=== PATIENT | male | born 1940 | race Caucasian/White ===

== ENCOUNTER 2018-07-30 08:45 | Outpatient (RCR) | payer MEDICARE, SELFPAY ==
--- NOTE | 2018-07-21 11:31 | IE_ITS ---
Date: July 21, 2018 Referring: Eleazar Staley M.D. [place] Diagnosis: left THR SUBJECTIVE: History of Present Illness: Gavino underwent a left THR, posterior approach, on July 07. Spent one night in the hospital in [place], [place]. Feels he is holding up very well compared to pre op condition with severe arthritis of the left hip. Reports that his pain is well managed. Pain Rating: While seated 0/10 and at its worst 1 to 2/10 (past week). Pain Location: Lateral and posterior aspect of the left hip. Current Level of Function: Limitations with stairs reciprocally, up and down. Unable to ambulate without an assisted device. Difficulty donning and doffing socks and shoes. Limitations with left side lying secondary to pain. Still not driving yet. Social: Lives in a multi level home with his . They winter in [place]. Has 4 steps to get into his home with a railing and a full flight of stairs once inside the house. He is performing these with a step to fashion using the railing up and down. 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 Falls in the last year: __x__ No ____Yes - How many? ____ - (if over 2, balance SM needs to be completed) Reported hospitalizations in the last year - ____ No __x__ Yes - Dates of admission/reason: post THR Medications: See patient EMR. Quality of Life: __x__ Good Standardized Measures: LEFS score: __56%__ OBJECTIVE: Posture: Ectomorphic body build. Tends to stand with a forwardly flexed posture. This is corrected with verbal and tactile cues. Observation: (behavior, atrophy, skin color, etc.) Incision is well closed without drainage or erythema. Does have hypo mobility of the scar tissue. We discussed use of Vitamin E for scar tissue mobilization at home. Atrophy noted throughout the left calf, which patient states has been a long standing issue, likely from stenosis. Gait: Antalgic with glute medius gait without the use of an assisted device. He has limitations in extension of the left hip past mid stance on the left and during swing on the right. Complains of tightness in the front of the hip with this gait style. Palpation: Mildly tender with palpation of the glute medius and glute chela on the left; (-) on the right. ROM: Hip ROM right into flexion 115 ; left 80 and AA to 90 . Abduction 30 right; 20 left and AA to 25 . External rotation 20 right and AA 25 compared to 10 left and AA 20 . Internal rotation was not assessed. Knee flexion and extension are grossly full in both directions. This is painfree. Strength: The patient is able to perform a SLR with a 0 lag. Hip flexor strength 4+/5 right; 4-/5 left. Hip abduction 4+/5 right; 3/5 left. Hip extension 4+/5 right; 4-/5 left. Quadriceps and hamstrings 4/5 bilaterally. Neuro: Patient reports mildly decreased sensation around the incision, otherwise WNL. Treatment: IE: [id number] x1 Patient Education: Initial evaluation followed by instruction in a HEP incorporating short swing hams in standing, bridging, SLR, self mobs into hip extension while standing by his walker, hip abd/adduction in supine with knee flexed, right knee to chest for anterior hip stretching on the left and side lying clamshells. The patient declined the need for ice post treatment. Direct treatment time: 60 min. from 10:00 til 11:00 A.M. ASSESSMENT: Patient is a 78-year-old male, referred for PT services with the diagnosis of left THR. Patient presents with clinical signs and symptoms consistent with this diagnosis, as demonstrated by the following impairment level findings: impaired gait, joint mobility, motor function, muscle performance and ROM associated with a total joint arthroplasty Impairments are contributing to the following functional limitations: as listed above Patient is assessed as: __x__ Low 82488 complexity, based on the following: History: (list): See comorbidities and social history. Examination: (list): See above for functional limitations and impairments. Presentation: Stable and uncomplicated Decision-Making: Low complexity ____ Patient requires skilled PT intervention to remediate the above functional limitations to return to: __x__ Return to full functional mobility Prognosis: __x__ Good G-Codes (fill in modifier after appropriate code): Patient's primary functional limitation is in the category of: __x__ Mobility - walking and moving around : [id number] Projected goal: __x__ Mobility - walking and moving around: [id number] based on LEFS, trying to achieve less than 25% STG: __6__ weeks. 1) patient ambulating without gait deviations and no assisted device 2) increase hip strength by 1/2 grade or more (left) 3) improve active hip flexion to greater than or equal to 110 , abduction 35 and ext rot 35 4) able to tolerate side lying for sleep LTG: __12__ weeks. 1) return to premorbid level of function. 2) return to full, pain-free, functional mobility. 3) decrease LEFS to less than 25% 4) patient negotiating stairs reciprocally 5) left hip strength greater than or equal to 4+/5 throughout PLAN: Patient to be seen 2x per week, for 12 weeks, adjusting frequency of visits per patient symptoms and response to treatment. Treatment to include: Manual therapy - 06969 - A/AA/PROM of the left hip all planes avoiding aggressive end range motion of int rotation or adduction. He verbally states there are no precautions, but given the fact that he had a posterior approach we will be mindful of this and not aggressively push into int rotation, adduction and flexion combined. Soft tissue stretching, particularly anterior hip flexors and quadriceps. Therapeutic exercise - 28308 - hip stabilization and LE strengthening of the quadriceps, hamstrings and calves. Will ice for pain control as needed. Will also receive gait training (35640) progressing from his walker to a cane to no assisted device at all. The patient is in agreement with my POC, and is to be discharged when the above goals have been met. Thank you for this referral. Please do not hesitate to contact me with any questions or concerns regarding this patient's plan of care. Please sign, date and return to our clinic with your approval........................... Iggy Staley M.D.
--- NOTE | 2018-07-23 13:45 | PTTR_ITS ---
DATE: 07/23/18 SUBJECTIVE: Stated left knee has been more uncomfortable than left hip. Rates knee pain as 3 out of 10 on 0-10 pain scale. Hip is really not painful. Has not taken any pain meds today, has not felt like he needed them. OBJECTIVE: Manual therapy: (50715y1). Mobilization of left hip with AAROM into flexion to 90 degrees, abduction to approximately 25 degrees and external rotation. Mobilization of left knee into flexion and extension was also performed due to ongoing knee discomfort. Therapeutic procedures ([id number]). * x HEP review performed * x See flow sheet: Had patient perform standing left hip flexion, abduction, extension and SSH. Also, had patient perform mini squats and LAQs. Discussed activation of pelvic floor / TA musculature with each of these activities. * x Provided skilled instruction in proper exercise performance * x Provided skilled manual cues to facilitate proper muscle recruitment and/ or movement pattern * Declined cryotherapy to hip at conclusion of session. Advised to use at home for sensitivity in knee and hip region as needed. Direct treatment time: 30 minutes Total treatment time: 30 minutes
--- NOTE | 2018-07-26 11:54 | PTTR_ITS ---
DATE: 07/26/18 SUBJECTIVE: Cheng states that he is doing well. He does admit that last he was here he all of a sudden ended up with some sort of reaction. He c/o redness and itching of bilateral palms as well as swelling of hands and digits. He reports that he is much better today. He questions if hepicked up some sort of germ from treatment table the last time he was here. OBJECTIVE: Manual therapy: ([id number]). mobilizations and ROM of left hip. Stretching of hamstrings, piriformis and quads. LE distractions via leg pulls. I also stretched hip adductors. STM t/o TFL, hip flex and proximal ITB. Therapeutic procedures ([id number]). * x See flow sheet: for global LE strength and stabilization. * x Provided skilled instruction in proper exercise performance: proper glut engagement. He declined the need for cryo post session. Direct treatment time: 45 min Total treatment time: 45 min
--- NOTE | 2018-07-30 10:22 | PTTR_ITS ---
DATE: 07/30/18 SUBJECTIVE: Gavino reports that he did well after his last session. He c/o occasional pins and needle sensation in upper thigh area. OBJECTIVE: Manual therapy: ([id number]). mobilizations and ROM of left hip. STM t/o hip and buttock region and into ITB, TFL. Stretching of hamstrings, piriformis, adductors. LE distractions via leg pulls. Therapeutic procedures ([id number]). * x See flow sheet: for global LE strength and hip stabilizations. * x Provided skilled instruction in proper exercise performance: proper glut engagement and postural corrections. He declined the need for cryo post session. Direct treatment time: 45 min Total treatment time: 50 min no charge for cardio
== END 2018-07-30 23:59 | disposition home or self-care (01) ==
LOC: PT 08:45
PROVIDERS: PCP Emergency Medicine; Referring Provider Orthopaedic Surgery Adult Reconstructive Orthopaedic Surgery; Visit Provider Orthopaedic Surgery Adult Reconstructive Orthopaedic Surgery
DX: Z47.1 Aftercare following joint replacement surgery (principal); Z96.642 Presence of left artificial hip joint
CPT/HCPCS: 97110; 97140; 97161; G8978

== ENCOUNTER 2018-08-31 10:55 | Outpatient (CLI) | payer MEDICARE, SELFPAY ==
[2018-08-31 13:27] LABS: TSH 2.17 uIU/mL (0.358-3.74)
== END 2018-08-31 11:15 ==
PROVIDERS: PCP Emergency Medicine; Visit Provider Emergency Medicine
DX: E03.9 Hypothyroidism, unspecified (principal)
CPT/HCPCS: 36415; 84443

== ENCOUNTER 2019-04-07 15:58 | Emergency (ER) | payer MEDICARE, SELFPAY ==
[2019-04-07 16:02] VITALS: BP 113/61; PULSE 68; RESP 16; TEMP 36; O2SAT 95
--- NOTE | 2019-04-07 16:23 | DI.CT_ITS ---
SYMPTOM/DIAGNOSIS: FALL, HIT HEAD , ANTERIOR CONTUSION CERVICAL SPINE CT: 04/07 CT examination of the cervical spine was performed utilizing multi-slice acquisition and multi-planar reconstruction. Tracheolaryngeal structures appear intact. No cervical mass or adenopathy is seen. Lung apices are clear as visualized. There are degenerative changes of the cervical spine, not unusual in this age group. No evidence of acute fracture or dislocation. CONCLUSION: No evidence of acute cervical fracture. Marked degenerative changes are present with multi-level disc space narrowing and facet arthropathy. CRANIAL CT: 04/[address] was performed. There is moderate generalized cerebral atrophy. There is no evidence of acute intracranial hemorrhage, mass effect or midline shift. No calvarial fracture identified. The temporal bone structures and visualized orbital structures appear intact. The visualized paranasal sinuses and mastoid air cells are clear. CONCLUSION: No evidence of acute intracranial injury.
--- NOTE | 2019-04-07 16:23 | DI.RAD_ITS ---
SYMPTOM/DIAGNOSIS: WAS DISLOCATED (NOW RELOCATED) R/O FX LEFT LITTLE FINGER: 04/07 Three views were obtained. No fracture is seen.
--- NOTE | 2019-04-07 17:29 | DI.VRAD_ITS ---
EXAM: XR Left Finger(s), 2 or More Views EXAM DATE/TIME: 04/07/2019 4:25 PM CLINICAL HISTORY: 78 years old, male; Injury or trauma; Fall; Initial encounter; Dislocation; Severity not specified; Left; Little finger TECHNIQUE: Imaging protocol: XR Left fingers. Views: Minimum 2 views. COMPARISON: No relevant prior studies available. FINDINGS: Bones/joints: Questionable nondisplaced fracture in the distal aspect of the proximal phalanx of the fifth digit. No displacement. It is unclear if this extends to the articular surface or not. Soft tissues: Soft tissue edema. IMPRESSION: Acute fracture suspected. Dictated and Authenticated by: Britton Dye MD. Ordering:SUHAIL Sainz MD
--- NOTE | 2019-04-07 18:09 | DI.VRAD_ITS ---
EXAM: CT Head Without Contrast EXAM DATE/TIME: 04/07/2019 4:25 PM CLINICAL HISTORY: 78 years old, male; Injury or trauma; Fall; Initial encounter; Blunt trauma TECHNIQUE: Imaging protocol: Axial computed tomography images of the head/brain without contrast. Coronal and sagittal reformatted images were created and reviewed. COMPARISON: No relevant prior studies available. FINDINGS: Brain: Normal. No hemorrhage. No significant white matter disease. No edema. Ventricles: Normal. No ventriculomegaly. Bones/joints: Unremarkable. No acute fracture. Sinuses: Visualized sinuses are unremarkable. No acute sinusitis. Mastoid air cells: Visualized mastoid air cells are unremarkable. No mastoid effusion. Soft tissues: Unremarkable. IMPRESSION: No acute intracranial abnormality. EXAM: CT Cervical Spine Without Contrast EXAM DATE/TIME: 04/07/2019 4:25 PM CLINICAL HISTORY: 78 years old, male; Injury or trauma; Fall; Initial encounter; Blunt trauma TECHNIQUE: Imaging protocol: Axial computed tomography images of the cervical spine without contrast. Coronal and sagittal reformatted images were created and reviewed. COMPARISON: No relevant prior studies available. FINDINGS: Vertebrae: Straightening of the cervical lordosis. Discs/Spinal canal/Neural foramina: Degenerative disc disease characterized by disc space narrowing. Disc space C4-5 level. Disc osteophyte complexes at C2-3, C3-4, C5-6 and C6-7 causing bilateral neural foraminal stenosis at these levels. Soft tissues: Unremarkable. Lungs: Lung apices are normal. IMPRESSION: Degenerative changes. No acute finding. Dictated and Authenticated by: Britton Dye MD. Ordering:SUHAIL Sainz MD
--- NOTE | 2019-04-07 18:40 | W.ED.GENAD ---
Discharge Plan Disposition Patient Disposition: HOME Condition: Good Discharge Details Chief Complaint: Orthopedic Clinical Impression: Dislocated finger, Open finger fracture, Fall Primary Care Provider: Ervin Gillis ED Provider: Alistair Correa Home Meds and New Rx's Prescriptions: New cephalexin [Keflex] 500 mg capsule 500 mg PO QID 7 Days Qty: 28 RF: 0 No Action levothyroxine [Synthroid] 50 mcg tablet 50 mcg PO DAILY Qty: 90 RF: 3 CENTRUM SILVER TABLET 1 EACH tablet 1 tab PO DAILY RF: 0 tamsulosin [Flomax] 0.4 MG capsule 0.4 mg PO DAILY RF: 0 calcium carbonate-vitamin D3 [Calcium 500 + D] 1 EACH tablet 1 ea PO DAILY RF: 0 Prilosec OTC 20 MG tablet,delayed release (DR/EC) 20 mg PO BID PRNQty: 180 RF: 4 ibuprofen 200 MG capsule 200 mg PO daily prn RF: 0 hydrochlorothiazide 25 MG tablet 25 mg PO DAILY Qty: 90 RF: 4 Discharge Instructions Instructions: Finger Fracture (ED) Additional Instructions: CT scan of your head is negative for any bleed or fracture. The x-ray of your finger shows a small fracture. Please take the Keflex as directed 4 times daily. Please keep the splint on for the next 7 days as the cut and fracture heal. Please take Tylenol and Motrin as needed for pain. Please return here in the next 7 to 10 days for removal of the sutures. Please leave the dressing on for 24 hours, then you may remove and begin cleaning the wound at least twice a day with soap and water. Do not directly soak the area. Watch for any signs of infection and return if any increasing redness, swelling, pain, drainage. Referrals: Ervin Gillis DO [Primary Care Provider] - Discharge Data Discharge Date/Time-TO BE ENTERED AT DEPARTURE: 04/07/19 19:04 Medical Decision Making This is a pleasant 78-year-old male who presents after a mechanical slip and subsequent fall onto a grassy surface striking the front of his head dislocating his left fifth digit. Aside for the contusion on his forehead, the dislocation of his left fifth finger, and a small laceration at the point of maximal skin tension, there is no other signs of significant trauma. He demonstrates a normal neurologic exam without deficit. He is on no blood thinners, tetanus is up-to-date. CT scan of the head and neck is negative for any acute intracranial process per virtual radiology. X-ray of the finger post reduction demonstrates questionable small fracture. Subsequent read by in-house radiology feels that there is no actual fracture of the bone. A digital block with 2% lidocaine was administered, prior to this the patient did demonstrate good two-point discrimination on the finger. After complete anesthesia was achieved the patient's finger was reduced without complication. No bony fragments or sharp parts were noted before or after the reduction. A small 1 cm laceration was present across the point of maximal skin tension, and I feel that this was secondary to the skin tension rather than actual disruption of the skin from a sharp bony fragment. Especially in conjunction with a relatively benign appearing finger x-ray. Out of an abundance of precaution the area was irrigated scrubbed vigorously with chlorhexidine, and then subsequently sutured with 2 interrupted 5-0 ethilon sutures. Patient tolerated this well. I did briefly review the case with Dr. Walsh, and he agrees that the mechanism does not support open fracture from sharp bony fragments, and is likely secondary to the significant tension. Out of an abundance of precaution the patient will be started on Keflex. The finger was splinted. With an otherwise benign work-up, normal neurologic exam, and normal movement of his finger with normal flexion and extension, and no evidence of weakness or significant tendon damage or neurologic or vascular compromise, including the evidence of notably brisk capillary refill in his distal tip of his finger, I feel he can be safely discharged home with close follow-up. We discussed red flags which to return and the patient understands. I have extensively reviewed the treatment plan and discharge instructions with the patient and their family. I have addressed all patient concerns at this time. The patient and family was made aware of what symptoms to monitor for that would warrant a return to the emergency department. Discussed the plan with the patient and family, they demonstrate verbal understanding and agreement with our assessment and plan at this time. Patient Name: FREDY QUIROGA #: [id number]: ER Ordering Provider: : PRE ER Primary Care Provider: Ervin Gillisate of Exam: 04/07/19Sex: M : 8Age: 78 CLINICAL HISTORY: 78 years old, male; Injury or trauma; Fall; Initial encounter; Dislocation; Severity not specified; Left; Little finger Technique: Imaging protocol: XR Left fingers. Views: Minimum 2 views. Comparison: No relevant prior studies available. Findings: Bones/joints: Questionable nondisplaced fracture in the distal aspect of the proximal phalanx of the fifth digit. No displacement. It is unclear if this extends to the articular surface or not. Soft tissues: Soft tissue edema. Impression: Acute fracture suspected. Dictated and Authenticated by: Britton Dye MD. Ordering:SUHAIL Sainz MD Exam(s) EXAM: CT Head Without Contrast EXAM DATE/TIME: 04/07/2019 4:25 PM CLINICAL HISTORY: 78 years old, male; Injury or trauma; Fall; Initial encounter; Blunt trauma TECHNIQUE: Imaging protocol: Axial computed tomography images of the head/brain without contrast. Coronal and sagittal reformatted images were created and reviewed. COMPARISON: No relevant prior studies available. FINDINGS: Brain: Normal. No hemorrhage. No significant white matter disease. No edema. Ventricles: Normal. No ventriculomegaly. Bones/joints: Unremarkable. No acute fracture. Sinuses: Visualized sinuses are unremarkable. No acute sinusitis. Mastoid air cells: Visualized mastoid air cells are unremarkable. No mastoid effusion. Soft tissues: Unremarkable. IMPRESSION: No acute intracranial abnormality. EXAM: CT Cervical Spine Without Contrast EXAM DATE/TIME: 04/07/2019 4:25 PM CLINICAL HISTORY: 78 years old, male; Injury or trauma; Fall; Initial encounter; Blunt trauma TECHNIQUE: Imaging protocol: Axial computed tomography images of the cervical spine without contrast. Coronal and sagittal reformatted images were created and reviewed. COMPARISON: No relevant prior studies available. FINDINGS: Vertebrae: Straightening of the cervical lordosis. Discs/Spinal canal/Neural foramina: Degenerative disc disease characterized by disc space narrowing. Disc space C4-5 level. Disc osteophyte complexes at C2-3, C3-4, C5-6 and C6-7 causing bilateral neural foraminal stenosis at these levels. Soft tissues: Unremarkable. Lungs: Lung apices are normal. IMPRESSION: Degenerative changes. No acute finding. Dictated and Authenticated by: Britton Dye MD. Ordering:SUHAIL Sainz MD HPI General Date/Time Provider Initiated Documentation: 04/07/19 16:10. HPI Narrative: This is an 78 year old male who is right hand dominant who presents today for evaluation of fall, head contusion, and left 5th digit deformity. The patient states that he was mowing his lawn and doing yard work when he had a mechanical slip on a grassy hill, and came running down the hill, catching himself with his left hand and striking his forehead. He had no loss of consciousness, he recalls the entire event. He was able to get up and ambulate on his own without assistance. He denies any severe headache, neck pain, chest pain, or abdominal pain. He denies any leg or arm pain. He does note a significant deformity in his left finger, but denies any other complaints aside for the mild pain there. He is not on any blood thinners. Tetanus is up-to-date. No other complaints or modifying factors. Related Data Home Medications Medication Instructions Recorded Confirmed Centrum Silver Tablet 1 tab PO DAILY 04/18/13 04/07/19 tamsulosin [Flomax] 0.4 mg PO DAILY tab-cap 01/01/16 04/07/19 calcium carbonate-vitamin D3 1 ea PO DAILY 04/16/16 04/07/19 [Calcium 500 + D Tablet] omeprazole magnesium [Prilosec Otc] 20 mg PO BID PRN #180 tab 11/03/16 04/07/19 ibuprofen 200 mg PO daily prn 08/26/17 04/07/19 hydrochlorothiazide 25 mg PO DAILY #90 tab 02/23/18 04/07/19 levothyroxine 50 mcg tablet 50 mcg PO DAILY #90 tab-cap 08/31/18 04/07/19 cephalexin [Keflex] 500 mg PO QID 7 Days #28 cap 04/07/19 Previous Rx's Medication Instructions Recorded hydrochlorothiazide 25 mg PO DAILY #90 tab 02/23/18 levothyroxine 50 mcg tablet 50 mcg PO DAILY #90 tab-cap 08/31/18 cephalexin [Keflex] 500 mg PO QID 7 Days #28 cap 04/07/19 Allergies Allergy/AdvReac Type Severity Reaction Status Date / Time amlodipine AdvReac Intermediate periphreal Verified 04/07/19 16:10 edema General Stated Complaint: Orthopedic PRAVEENA: 3 Review of Systems Review of Systems All systems reviewed & are unremarkable except as noted in HPI and below PFSH Surgical History Colonoscopy - IV Sedation (06/22/13) LAMINECTOMY (MULTILEVEL) (~2012) Replacement of total knee joint (~2003) Family History Mother No problems noted. Father Acute ill-defined cerebrovascular disease Grandfather No problems noted. Grandfather Personal history of malignant neoplasm Grandmother Acute ill-defined cerebrovascular disease Grandmother No problems noted. Social History Smoking/Tobacco Use Status: Former Tobacco Use Alcohol Intake: former Drug use: Never Do you feel safe at home: Yes Do you feel safe in your relationship?: Yes Exam Narrative Exam Narrative: 1.Const: Well-nourished, Well-developed, appearing stated age 2.Eyes: PERRL, no conjunctival injection, and symmetrical lids. 3.ENT: Atraumatic external nose and ears. Moist MM. Neck: Symmetric, trachea midline, No thyromegaly. There is no evidence of raccoon eyes, dewey sign, CSF rhinorrhea, mastoid tenderness, cranial crepitus, hemotympanum, exophthalmos, or hyphema. Patient demonstrates intact dentition with no signs of tooth avulsion or fracture, no signs of jaw deformity, no evidence of a LeFort's fracture, with an intact palate, nose and orbital region. There is no evidence of a nasal septal hematoma. No proptosis. Jaw closes symmetrically. Airway is clear. 4.CVS: +S1/S2, No murmurs or gallops. Peripheral pulses 2+ and equal in all extremities. Brisk capillary refill in all extremities. 5.RESP: Unlabored respiratory effort. Clear to auscultation bilaterally. No wheezes rales or rhonchi 6.GI: Soft, Nontender/Nondistended, No hepatosplenomegaly. No guarding or rebound. 7.MSK: No gross deformities or discolorations or lesions except for in the fifth digit on the left hand, otherwise he tolerates full range of motion of extremities without tenderness. All compartments of upper and lower extremities are soft with no tenderness. Vascular exam demonstrates brisk capillary refill and intact pulses in all extremities. Pelvic exam demonstrates a stable pelvis, nontender to lateral compression and palpation of symphysis pubis. No midline tenderness to palpation over the CTLS spine. Normal ROM in flexion, extension, side bend, and rotation. Patient has +5 out of 5 strength in the lower extremities in dorsiflexion and plantarflexion, knee flexion and extension, hip flexion and extension. There is +2 over 2 dorsalis pedis pulses bilaterally. There is normal sensation to the skin with light touch at the foot, knee, and hip. Normal saddle sensation. Good sensation over the deep sural nerve area bilaterally. Rectal exam deferred. Reflexes are +2 over 4 in the patellar reflex bilaterally. +5 out of 5 strength in the medial, ulnar, radial nerve distribution bilaterally in the hands as well as intact light touch sensation to these dermatomes on the hands Left 5th finger: Left finger demonstrates dislocation at the proximal interphalangeal joint. The distal component of the phalanx is dislocated anteriorly with notable extension at 90 degrees at the joint because of it and subsequent flexion of the distal phalanx tip. There is a small skin tear on the anterior aspect of the proximal interphalangeal joint, no evidence of bony protrusion. No active bleeding. 8.Skin: Warm, Dry. No rashes or lesions. Small 1 cm laceration at the anterior aspect of the proximal interphalangeal joint. No bony protrusion. Small contusion noted over the forehead. 9.Neuro: manager consumer II-XII grossly intact. Sensation grossly intact, no focal neurologic deficits. 10.Psych: (AAO) x3. Appropriate mood and affect Course Vital Signs Temperature 36 C L 04/07/19 16:02 Pulse 68 04/07/19 16:02 Respiratory Rate 16 04/07/19 16:02 Blood Pressure 113/61 04/07/19 16:02 Pulse Oximetry 95 04/07/19 16:02 Temperature 36 C L 04/07/19 16:02 Temperature Source Skin 04/07/19 16:02 Pulse 68 04/07/19 16:02 Respiratory Rate 16 04/07/19 16:02 Respiratory Effort 04/07/19 16:07 Blood Pressure 113/61 04/07/19 16:02 Blood Pressure Position Sitting 04/07/19 16:02 Pulse Oximetry 95 04/07/19 16:02 Oxygen Delivery Method Room Air 04/07/19 16:02 Oxygen Flow Rate 0 04/07/19 16:02 Pain Level 3 04/07/19 18:27
[2019-04-07] MEDS: Cephalexin 500 MG CAP PO (18:57)
[2019-04-07 18:59] VITALS: BP 113/61; PULSE 68; RESP 16; TEMP 36.7; O2SAT 95
== END 2019-04-07 19:04 | disposition home or self-care (01) ==
PROVIDERS: Emergency Provider Student in an Organized Health Care Education/Training Program; PCP Emergency Medicine
DX: S63.217A Subluxation of metacarpophalangeal joint of left little finger, initial encounter (principal); S00.83XA Contusion of other part of head, initial encounter; S61.217A Laceration without foreign body of left little finger without damage to nail, initial encounter; W01.0XXA Fall on same level from slipping, tripping and stumbling without subsequent striking against object, initial encounter
CPT/HCPCS: 12001; 26770; 99284; 70450; 72125; 73140

== ENCOUNTER 2019-04-14 14:11 | Emergency (ER) | payer MEDICARE, SELFPAY ==
[2019-04-14 14:17] VITALS: BP 134/72; PULSE 62; RESP 16; TEMP 36.7; O2SAT 64
--- NOTE | 2019-04-14 14:25 | W.ED.GENAD ---
Discharge Plan Disposition Patient Disposition: HOME Condition: Good Discharge Details Chief Complaint: SutureRem Clinical Impression: Open fracture dislocation of finger Primary Care Provider: Ervin Gillis ED Provider: Prisca Montilla Home Meds and New Rx's Prescriptions: Continued levothyroxine [Synthroid] 50 mcg tablet 50 mcg PO DAILY Qty: 90 RF: 3 CENTRUM SILVER TABLET 1 EACH tablet 1 tab PO DAILY RF: 0 tamsulosin [Flomax] 0.4 MG capsule 0.4 mg PO DAILY RF: 0 calcium carbonate-vitamin D3 [Calcium 500 + D] 1 EACH tablet 1 ea PO DAILY RF: 0 Prilosec OTC 20 MG tablet,delayed release (DR/EC) 20 mg PO BID PRNQty: 180 RF: 4 ibuprofen 200 MG capsule 200 mg PO daily prn RF: 0 hydrochlorothiazide 25 MG tablet 25 mg PO DAILY Qty: 90 RF: 4 Discharge Instructions Additional Instructions: Wound appears to be healing well today. Sutures are removed. YOu will need follow-up with orthopedics to evaluate your finger and ensure the fracture is healing well. Please call orthopedics to schedule appointment. Please continue splint until evaluated by orthopedics. Encourage rest, ice, elevation. Tylenol and ibuprofen as needed for discomfort. Continue to monitor the wound for signs of infection include redness, warmth, drainage, increased pain, fever/chills. If these arise please seek care urgently once again. Referrals: Ervin Gillis, [Primary Care Provider] - Obinna Ward MD [ [facility] STAFF PHYSICIAN] - Medical Decision Making Patient 78-year-old male presents today for suture removal. He was seen here 7 days ago at which time he was diagnosed with an open fracture dislocation of the left pinky finger. Patient appears to be healing well. No signs of infection. #[address] These were removed by nursing staff. He reports that he is intermittently been wearing his splint. Advised he should wear this consistently. Patient has not had any follow-up as of yet. I advised that he will need follow-up with orthopedics. Placed the patient on the fracture list. Encourage rest, ice, elevation. Tylenol and ibuprofen as needed for discomfort. All of his questions and concerns were addressed and he is in agreement with this plan. HPI General Mode of arrival: ambulatory. Date/Time Provider Initiated Documentation: 04/14/19 14:20. Limitations to Documentation: no limitations. Information obtained by: patient, family and RN notes reviewed. History of Present Illness 78 year old M presents to the emergency department with the chief complaint of suture removal, described as mild, and is localized to the left and upper extremity. Patient started experiencing this day(s) and it has been now resolved. Movement worsens symptoms . Patient notes no other symptoms.. Patient did receive the following treatments prior to arrival, none Related Data Home Medications Medication Instructions Recorded Confirmed Centrum Silver Tablet 1 tab PO DAILY 04/18/13 04/14/19 tamsulosin [Flomax] 0.4 mg PO DAILY tab-cap 01/01/16 04/14/19 calcium carbonate-vitamin D3 1 ea PO DAILY 04/16/16 04/14/19 [Calcium 500 + D] Prilosec OTC 20 mg PO BID PRN #180 tab 11/03/16 04/14/19 ibuprofen 200 mg PO daily prn 08/26/17 04/14/19 hydrochlorothiazide 25 mg PO DAILY #90 tab 02/23/18 04/14/19 levothyroxine 50 mcg tablet 50 mcg PO DAILY #90 tab-cap 08/31/18 04/14/19 Previous Rx's Medication Instructions Recorded hydrochlorothiazide 25 mg PO DAILY #90 tab 02/23/18 levothyroxine 50 mcg tablet 50 mcg PO DAILY #90 tab-cap 08/31/18 Allergies Allergy/AdvReac Type Severity Reaction Status Date / Time amlodipine AdvReac Intermediate periphreal Verified 04/14/19 14:25 edema General Stated Complaint: SutureRem PRAVEENA: 5 Review of Systems Constitutional Reports as per HPI, Denies chills and Denies fever(s) Musculoskeletal Reports as per HPI Integumentary/Breasts Reports as per HPI Neurologic Reports as per HPI, Denies sensory deficit and Denies paresthesias PFS Surgical History Colonoscopy - IV Sedation (06/22/13) LAMINECTOMY (MULTILEVEL) (~2012) Replacement of total knee joint (~2003) Family History Mother No problems noted. Father Acute ill-defined cerebrovascular disease Grandfather No problems noted. Grandfather Personal history of malignant neoplasm Grandmother Acute ill-defined cerebrovascular disease Grandmother No problems noted. Social History Smoking/Tobacco Use Status: Former Tobacco Use Alcohol Intake: former Drug use: Never Do you feel safe at home: Yes Do you feel safe in your relationship?: Yes Exam Const General: cooperative, healthy appearing, comfortable, no acute distress and well developed Nutritional Appearance: average body habitus and well nourished Orientation: alert and awake Resp Effort & Inspection: normal respiratory effort, able to speak in complete sentences and no respiratory distress Cardio Rate: regular rate Rhythm: regular rhythm Skin General skin exam: no erythema Trauma: laceration (appears to be healing well) Neuro General: alert and awake Cognition: normal cognition Speech: speech normal Gait: normal gait Sensory Exam: no sensory deficits noted Extrem Left lower extremity: abnormal to inspection (laceration appears to be healing well, no deformity) Psych Appearance: grossly normal and well kempt Mental Status: mental status grossly normal Speech and Movement: speech and movement normal Course Vital Signs Temperature 36.7 C 04/14/19 14:17 Pulse 62 04/14/19 14:17 Respiratory Rate 16 04/14/19 14:17 Blood Pressure 134/72 04/14/19 14:17 Pulse Oximetry 64 L 04/14/19 14:17 Temperature 36.7 C 04/14/19 14:17 Temperature Source Skin 04/14/19 14:17 Pulse 62 04/14/19 14:17 Respiratory Rate 16 04/14/19 14:17 Respiratory Effort Non-Labored 04/14/19 14:23 Blood Pressure 134/72 04/14/19 14:17 Pulse Oximetry 64 L 04/14/19 14:17 Oxygen Delivery Method Room Air 04/14/19 14:17 Oxygen Flow Rate 0 04/14/19 14:17 Pain Level 0 04/14/19 14:17
== END 2019-04-14 14:41 | disposition home or self-care (01) ==
LOC: ER 14:41
PROVIDERS: Emergency Provider Physician Assistant; PCP Emergency Medicine
DX: S61.217D Laceration without foreign body of left little finger without damage to nail, subsequent encounter (principal); X58.XXXD Exposure to other specified factors, subsequent encounter; Z48.02 Encounter for removal of sutures

== ENCOUNTER → 2019-04-26 08:30 | Outpatient (BNVA) | payer MEDICARE, SELFPAY | PROVIDERS: PCP Emergency Medicine; Referring Provider Emergency Medicine; Visit Provider Orthopaedic Surgery | DX: S63.20 Unspecified subluxation of other finger (principal); W01.0XXA Fall on same level from slipping, tripping and stumbling without subsequent striking against object, initial encounter; I10 Essential (primary) hypertension | CPT/HCPCS: 99201; 99213 ==

== ENCOUNTER 2019-09-02 11:02 | Outpatient (CLI) | payer MEDICARE, SELFPAY ==
[2019-09-02 13:18] LABS: Abs Immature Grans 0.01 k/cumm (0.0-0.09); Absolute Basophil Count 0.03 k/cumm (0.0-0.2); Absolute Eosinophil Count 0.15 k/cumm (0.0-0.7); Absolute Lymphocyte Count 1.44 k/cumm (1.2-3.4); Absolute Monocyte Count 0.71 k/cumm (0.11-0.7); Absolute Neutrophil Count 4.87 k/cumm (1.2-6.7); Basophils % 0.4; Eosinophils % 2.1; HCT 44.1 % (40.0-50.0); HGB 15.6 g/dL (13.5-17.5); Immature Grans % 0.1; Mean Corp. HGB Concentration 35.4 g/dL (32.0-36.0); Mean Corpuscular Hemoglobin 32.6 pg (27.0-33.0); Mean Corpuscular Volume 92.3 fL (80-95); Mean Platelet Volume 10.5 fL (8.0-11.0); Monocytes % 9.8; Neutrophils % 67.6; Platelet Count 284 x1000/uL (130-400); RBC 4.78 m/cumm (4.50-6.00); White Blood Cell Count 7.21 k/cumm (4.4-10.8)
[2019-09-02 13:35] LABS: ALT 28 U/L (16-63); AST 33 U/L (15-37); Albumin 3.9 g/dL (3.4-5.0); Alkaline Phosphatase 89 U/L (46-116); BUN 15 mg/dL (7-18); Bilirubin, Total 0.7 mg/dL (0.2-1.0); C-Reactive Protein 0.16 mg/dL (0.0-0.3); CREATININE 1.15 mg/dL (0.70-1.30); Calcium 9.5 mg/dL (8.5-10.1); Chloride 98 mmol/L (98-107); Glucose 84 mg/dL (70-100); Potassium 4.8 mmol/L (3.5-5.1); Sodium 137 mmol/L (136-145); TSH 1.57 uIU/mL (0.36-3.74); Total Protein 6.9 g/dL (6.4-8.2)
== END 2019-09-02 11:22 ==
PROVIDERS: PCP Emergency Medicine; Visit Provider Emergency Medicine
DX: C67.9 Malignant neoplasm of bladder, unspecified (principal); R53.83 Other fatigue; E03.9 Hypothyroidism, unspecified
CPT/HCPCS: 36415; 80053; 84443; 85025; 86140

== ENCOUNTER 2019-09-13 12:29 | Emergency (ER) | payer MEDICARE, SELFPAY ==
[2019-09-13] VITALS (22 sets, daily range): BP systolic 139–157; BP diastolic 70–95; PULSE 59–73; RESP 10–25; TEMP 36.6; O2SAT 93–97
[2019-09-13 13:07] LABS: Abs Immature Grans 0.01 k/cumm (0.0-0.09); Absolute Basophil Count 0.01 k/cumm (0.0-0.2); Absolute Eosinophil Count 0.02 k/cumm (0.0-0.7); Absolute Lymphocyte Count 0.69 k/cumm (1.2-3.4); Absolute Neutrophil Count 7.49 k/cumm (1.2-6.7); Basophils % 0.1; Eosinophils % 0.2; HCT 42.9 % (40.0-50.0); HGB 15.6 g/dL (13.5-17.5); Immature Grans % 0.1; Lymphocytes % 7.9; Mean Corp. HGB Concentration 36.4 g/dL (32.0-36.0); Mean Corpuscular Hemoglobin 32.9 pg (27.0-33.0); Mean Corpuscular Volume 90.5 fL (80-95); Mean Platelet Volume 10.1 fL (8.0-11.0); Monocytes % 5.7; Platelet Count 271 x1000/uL (130-400); RBC 4.74 m/cumm (4.50-6.00); RBC Distribution Width 12.6 % (11.8-14.1); White Blood Cell Count 8.72 k/cumm (4.4-10.8)
[2019-09-13] MEDS: Acetaminophen 500 MG TAB PO (13:30)
[2019-09-13 13:31] LABS: ALT 28 U/L (16-63); AST 37 U/L (15-37); Albumin 4.1 g/dL (3.4-5.0); Alkaline Phosphatase 87 U/L (46-116); Anion Gap 10.5 mmol/L (3-11); BUN 25 mg/dL (7-18); Bilirubin, Total 1.4 mg/dL (0.2-1.0); CO2 30.5 mmol/L (21.0-32.0); CREATININE 1.25 mg/dL (0.70-1.30); Calcium 9.7 mg/dL (8.5-10.1); Chloride 90 mmol/L (98-107); Estimated GFR 55.44 (mL/min/1.73m2); Glucose 124 mg/dL (70-100); Magnesium 1.8 mg/dL (1.8-2.4); Potassium 3.4 mmol/L (3.5-5.1); Sodium 131 mmol/L (136-145); Total Protein 7.5 g/dL (6.4-8.2)
[2019-09-13 13:33] LABS: Troponin I < 0.05 ng/mL (0.00-0.06)
--- NOTE | 2019-09-13 13:43 | ED.GENADUL_ITS ---
Discharge Plan Disposition Patient Disposition: HOME Condition: Good Discharge Details Chief Complaint: Dizzy/Sync Clinical Impression: Dizziness Primary Care Provider: Ervin Gillis ED Provider: Sayra Spence Home Meds and New Rx's Prescriptions: No Action levothyroxine [Synthroid] 50 mcg tablet 50 mcg PO DAILY Qty: 90 RF: 3 CENTRUM SILVER TABLET 1 EACH tablet 1 tab PO DAILY RF: 0 tamsulosin [Flomax] 0.4 MG capsule 0.4 mg PO DAILY RF: 0 calcium carbonate-vitamin D3 [Calcium 500 + D] 1 EACH tablet 1 ea PO DAILY RF: 0 Prilosec OTC 20 MG tablet,delayed release (DR/EC) 20 mg PO BID PRNQty: 180 RF: 4 ibuprofen 200 MG capsule 200 mg PO daily prn RF: 0 hydrochlorothiazide 25 MG tablet 25 mg PO DAILY Qty: 90 RF: 4 Discharge Instructions Instructions: Dizziness (ED) Additional Instructions: Drink plenty of fluids. Rest activities as tolerated. Follow-up promptly with your primary care doctor for reevaluation. For any return of your symptoms, worsening symptoms or alarming symptoms have immediate reevaluation at your local emergency room as discussed if needed sooner Discharge Data Discharge Date/Time-TO BE ENTERED AT DEPARTURE: 09/13/19 17:22 Medical Decision Making <Ian Orta NP - Last Filed: 09/14/19 08:24> Patient presenting to the emergency department for chief complaint of generalized weakness. Patient reports that he had a CT scan and significant work-up yesterday at [facility] with his history of bladder cancer and that everything checked out fine today he was getting ready [place] when he started feeling not well. Patient reports generalized weakness, and fatigue. Patient does state some neck pain but does have significant history of arthritis and is similar in fashion to arthritis. Patient denies fever chills, vomiting, or diarrhea. He does report some sensation of feeling lightheaded with strenuous activity and did have mild nausea during these episodes. Physical exam is unremarkable and shows normal neurological function, normal cardiac exam, clear lung sounds, no obvious abnormality. Plan to check labs including urinalysis. Patient does report that he is not had much urine output today and did have a cystoscopy yesterday. Plan to do urinalysis and bladder scan patient. EKG reviewed with Dr. Mack and shows sinus rhythm and right bundle branch block pattern, rate of 71, no evidence of STEMI, no significant change from EKG dated 09/02/2019. Plan to give Tylenol pending results Review of labs show no leukocytosis and otherwise unremarkable CBC, CMP shows slightly decreased sodium of 131, potassium low at 3.4, chloride low at 90, BUN elevated to 25 with creatinine of 1.125 and GFR 55. Work-up is otherwise unremarkable/nondiagnostic slight increase of bilirubin otherwise normal LFTs and with magnesium and normal limits. Initial troponin is less than 0.05. Patient given IV fluids, and oral potassium.. Patient reassessed and states improvement of overall symptoms and decrease in neck pain. Given that patient was having neck pain that I feel is most likely due to increased activity and ongoing arthritis patient was offered a CT image of the neck but with reassessment patient is now stating that he would prefer to defer any imaging at this time unless absolutely necessary. Given most likely increase of arthritis due to activity I do not feel that imaging is required. Plan to do second troponin and reassess patient with ambulation after negative work-up. <DASHA Reyes - Last Filed: 09/13/19 23:33> Accepted signout of an 79-year-old pleasant gentleman pending second troponin. Patient second troponin was unremarkable. Went to the room to reevaluate the patient who is standing walking around the room steadily who was well-appearing. Gentleman reports his symptoms have resolved and he was feeling well at this time requesting discharge home. Patient initially was evaluated for vague symptoms specifically weakness and lightheadedness. Reviewed patient's test results. Patient was noted to have mild elevation of his bilirubin as well as sodium at 131 and potassium 3.4. He did receive a liter of IV fluid which did improve his symptoms. The patient was stable and requested discharge. Prior to discharge, my usual and customary return precautions were reviewed with the patient - this included follow-up instructions and reasons to return to the Emergency Department if conditions worsens, does not improve as expected, or other new concerns arise. HPI <Ian Orta NP - Last Filed: 09/14/19 08:24> General Mode of arrival: ambulatory . Date/Time Provider Initiated Documentation: 09/13/19 12:30 . Limitations to Documentation: no limitations . Information obtained by: patient, family and RN notes reviewed . History of Present Illness 79 year old M presents to the emergency department with the chief complaint of Generalized weakness, described as mild, with intensity rated at 4. Quality is described as aching, and is localized to the neck. Patient started experiencing this hour(s) (4) and it has been constant. No relieving factors improve symptom(s), Movement worsens symptoms (And activity) . Patient did receive the following treatments prior to arrival, none Related Data Home Medications Medication Instructions Recorded Confirmed Centrum Silver Tablet 1 tab PO DAILY 04/18/13 09/13/19 tamsulosin [Flomax] 0.4 mg PO DAILY tab-cap 01/01/16 09/13/19 calcium carbonate-vitamin D3 1 ea PO DAILY 04/16/16 09/13/19 [Calcium 500 + D] Prilosec OTC 20 mg PO BID PRN #180 tab 11/03/16 09/13/19 ibuprofen 200 mg PO daily prn 08/26/17 09/13/19 hydrochlorothiazide 25 mg PO DAILY #90 tab 02/23/18 09/13/19 levothyroxine 50 mcg tablet 50 mcg PO DAILY #90 tab-cap 09/02/19 09/13/19 Previous Rx's Medication Instructions Recorded hydrochlorothiazide 25 mg PO DAILY #90 tab 02/23/18 levothyroxine 50 mcg tablet 50 mcg PO DAILY #90 tab-cap 09/02/19 Allergies Allergy/AdvReac Type Severity Reaction Status Date / Time amlodipine AdvReac Intermediate periphreal Verified 09/13/19 12:44 edema General Stated Complaint: Chest Pain PRAVEENA: 2 Review of Systems <Ian Orta NP - Last Filed: 09/14/19 08:24> Constitutional Constitutional: Denies chills, Denies fever(s), Denies headache(s), Reports malaise and Denies poor appetite ENT Ears, Nose, Mouth, and Throat: Denies headache(s) and Reports neck pain Cardiovascular Cardiovascular: Denies chest pain, Denies syncope, Reports lightheadedness, Denies palpitations and Denies dyspnea Respiratory Respiratory: Denies cough and Denies dyspnea Musculoskeletal Musculoskeletal: Denies joint swelling, Denies limited range of motion, Reports neck pain, Denies numbness, Denies stiffness and Denies tingling Neurologic Neurologic: Denies syncope, Denies headache(s), Denies numbness and Denies tingling Endocrine Endocrine: Denies palpitations PFSH <Ian Orta NP - Last Filed: 09/14/19 08:24> Medical History Fatigue (Acute) Surgical History Colonoscopy - IV Sedation (06/22/13) [facility] [place] 2 POLYPS LAMINECTOMY (MULTILEVEL) (~2012) Replacement of total knee joint (~2003) B/L Family History Mother , OLD AGE at age 94. No problems noted. Father Acute ill-defined cerebrovascular disease Grandfather No problems noted. Grandfather Personal history of malignant neoplasm PROSTATE Grandmother Acute ill-defined cerebrovascular disease Grandmother No problems noted. Social History Smoking/Tobacco Use Status: Former Tobacco Use Alcohol Intake: former Drug use: Never Do you feel safe at home: Yes Do you feel safe in your relationship?: Yes Exam <Ian Orta NP - Last Filed: 09/14/19 08:24> Const General: cooperative and well groomed Orientation: alert, awake and oriented x3 HENMT Head: normal to inspection Ears: hearing grossly normal bilaterally and TM's normal bilaterally Mouth: oral mucosae normal and moist mucous membranes Throat: posterior oropharynx normal Eyes Visual Rubio: normal visual rubio by confrontation Alignment and Position: alignment normal Periorbital: periorbital findings normal Pupils: PERRL EOM: EOM intact bilaterally Neck Neck: normal visual inspection, full ROM, no lymphadenopathy and no meningeal signs Resp Effort & Inspection: normal respiratory effort and able to speak in complete sentences Auscultation: clear to auscultation bilaterally Cardio Rate: regular rate Rhythm: regular rhythm Heart Sounds: S1 normal and S2 normal Neuro General: alert, awake, oriented x3, gait normal, tone normal, moves all extremities, no meningeal signs, no focal motor deficits, CN's II-XI intact bilaterally and not confused Cognition: normal cognition Speech: speech normal Motor: muscle tone normal throughout, strength 5/5 throughout, no pronator drift, no movement abnormalities noted and no fasciculations Sensory Exam: no sensory deficits noted Coordination: Does not sway with eyes open Course <Ian Orta NP - Last Filed: 09/14/19 08:24> Vital Signs Vital signs: Vital Signs Temperature 36.6 C 09/13/19 12:36 Pulse 72 09/13/19 12:36 Respiratory Rate 16 09/13/19 12:36 Blood Pressure 157/95 H 09/13/19 12:36 Pulse Oximetry 95 09/13/19 12:36 Temperature 36.6 C 09/13/19 12:36 Temperature Source Skin 09/13/19 12:36 Pulse 72 09/13/19 12:36 Pulse 63 09/13/19 13:25 Respiratory Rate 15 09/13/19 13:25 Respiratory Effort Non-Labored 09/13/19 12:57 Respiratory Depth Normal 09/13/19 12:57 Respiratory Pattern Normal 09/13/19 12:57 Blood Pressure 157/95 H 09/13/19 12:36 Blood Pressure Position Supine 09/13/19 12:36 Pulse Oximetry 94 L 09/13/19 13:25 Oxygen Delivery Method Room Air 09/13/19 12:36 Oxygen Flow Rate 0 09/13/19 12:36 Pain Level 3 09/13/19 12:36 Lab/Test Results Lab/Test Results: Laboratory Tests Range/Units 09/13/19 09/13/19 12:35 12:35 WBC (4.4-10.8) k/cumm 8.72 RBC (4.50-6.00) m/cumm 4.74 Hgb (13.5-17.5) g/dL 15.6 Hct (40.0-50.0) % 42.9 MCV (80-95) fL 90.5 MCH (27.0-33.0) pg 32.9 MCHC (32.0-36.0) g/dL 36.4 H RDW (11.8-14.1) % 12.6 Plt Count (130-400) x1000/uL 271 MPV (8.0-11.0) fL 10.1 Immature Gran % 0.1 Neutrophils % 86.0 Lymphocytes % 7.9 Monocytes % 5.7 Eosinophils % 0.2 Basophils % 0.1 Absolute Neutrophils (1.2-6.7) k/cumm 7.49 H Absolute Lymphocytes (1.2-3.4) k/cumm 0.69 L Absolute Monocytes (0.11-0.7) k/cumm 0.50 Absolute Eosinophils (0.0-0.7) k/cumm 0.02 Absolute Basophils (0.0-0.2) k/cumm 0.01 Sodium (136-145) mmol/L 131 L Potassium (3.5-5.1) mmol/L 3.4 L Chloride (98-107) mmol/L 90 L Carbon Dioxide (21.0-32.0) mmol/L 30.5 Anion Gap (3-11) mmol/L 10.5 BUN (7-18) mg/dL 25 H Creatinine (0.70-1.30) mg/dL 1.25 Estimated GFR/1.73 m2 (mL/min/1.73m2) 55.44 Glucose (70-100) mg/dL 124 H Calcium (8.5-10.1) mg/dL 9.7 Magnesium (1.8-2.4) mg/dL 1.8 Total Bilirubin (0.2-1.0) mg/dL 1.4 H AST (15-37) U/L 37 ALT (16-63) U/L 28 Alkaline Phosphatase (46-116) U/L 87 Troponin I (0.00-0.06) ng/mL < 0.05 Total Protein (6.4-8.2) g/dL 7.5 Albumin (3.4-5.0) g/dL 4.1 Sign Out <Ian Orta NP - Last Filed: 09/14/19 08:24> Sign Out Data: Sign Out Comment: Patient signed out pending second troponin and if negative ambulation and reassessment of patient. Last updated by Ian Orta NP at 09/13/19 15:54
[2019-09-13] MEDS: Normal Saline 500 ML IV (13:50)
[2019-09-13 14:01] LABS: Bilirubin Negative (Negative); Blood Negative (Negative); Clarity Clear (Clear); Glucose Negative (Negative); Ketones Trace mg/dL (Negative); Leukocyte Esterase Negative (Negative); Nitrite Negative (Negative); Specific Gravity 1.015 (1.005-1.025); Urobilinogen 0.2 EU/dL (Up TO 0.2); pH 7.5 (5-8)
[2019-09-13] MEDS: Potassium Chloride 10 MEQ TABCR PO (14:04)
[2019-09-13 16:28] LABS: Troponin I < 0.05 ng/mL (0.00-0.06)
[2019-09-13] MEDS: Normal Saline Flush 10 ML SYR IVP (17:21)
== END 2019-09-13 17:22 | disposition home or self-care (01) ==
PROVIDERS: Nurse Practitioner Family; Emergency Provider Physician Assistant; PCP Emergency Medicine
DX: R42 Dizziness and giddiness (principal); F41.9 Anxiety disorder, unspecified
CPT/HCPCS: 36415; 80053; 93005; 96360; 96361; 99284; 81003; 83735; 84484; 85025; 93010

== ENCOUNTER 2020-08-25 11:26 | Outpatient (REF) | payer MEDICARE, SELFPAY ==
[2020-08-24 21:33] LABS: TSH 1.48 uIU/mL (0.36-3.74)
== END 2020-08-25 11:46 ==
LOC: LBN 11:26
PROVIDERS: PCP Emergency Medicine; Visit Provider Emergency Medicine
DX: E03.9 Hypothyroidism, unspecified (principal)
CPT/HCPCS: 84443

== ENCOUNTER 2021-04-02 10:33 | Outpatient (CLI) | payer MEDICARE, SELFPAY ==
[2021-04-02 13:01] LABS: HCT 44.9 % (40.0-50.0); HGB 15.9 g/dL (13.5-17.5); MCH 32.9 pg (27.0-33.0); MCHC 35.4 % (32.0-36.0); MPV 10.5 fL (8.0-11.0); Platelet Count 268 10^3/uL (130-400); RBC 4.83 10^6/uL (4.36-5.78); RDW 12.7 % (11.8-14.1); RDW-SD 43.7 fL; WBC 6.84 10^3/uL (4.4-10.8)
[2021-04-02 13:17] LABS: ALT 40 U/L (16-63); AST 36 U/L (15-37); Albumin 3.9 g/dL (3.4-5.0); Alkaline Phosphatase 78 U/L (46-116); Anion Gap 5.6 mmol/L (3-11); BUN 22 mg/dL (7-18); Bilirubin, Total 0.8 mg/dL (0.2-1.0); CO2 33.4 mmol/L (21.0-32.0); CREATININE 1.2 mg/dL (0.70-1.30); Calcium 9.7 mg/dL (8.5-10.1); Chloride 100 mmol/L (98-107); Estimated GFR 57.96 (mL/min/1.73m2); Glucose 89 mg/dL (74-106); Potassium 4.5 mmol/L (3.5-5.1); Sodium 139 mmol/L (136-145)
[2021-04-02 13:36] LABS: Calculated LDL 118 mg/dL (<100); Cholesterol 188 mg/dL (<200); HDL Cholesterol 45 mg/dL (40-60); Triglyceride 125 mg/dL (<150)
== END 2021-04-02 10:34 | disposition home or self-care (01) ==
LOC: LOS 10:34
PROVIDERS: PCP Emergency Medicine; Visit Provider Emergency Medicine
DX: I10 Essential (primary) hypertension (principal); G45.9 Transient cerebral ischemic attack, unspecified
CPT/HCPCS: 36415; 80053; 80061; 85027

== ENCOUNTER 2021-07-19 01:49 | Outpatient (RCR) | payer MEDICARE, SELFPAY ==
--- NOTE | 2021-07-19 14:00 | HOLTER_ITS ---
APPROVED REPORT Conclusion This was a 48-hour Holter monitor ordered for bradycardia Rhythm throughout was sinus with an average heart rate of 49. Minimum was 41, maximum 79 There were rare atrial and ventricular ectopic beats There was no atrial fibrillation. Longest pause was 2.54 seconds Patient symptoms corresponded to sinus rhythm rate 59-64
== END 2021-07-30 23:59 | disposition home or self-care (01) ==
LOC: RT 01:49
PROVIDERS: PCP Emergency Medicine; Visit Provider Emergency Medicine
DX: R00.1 Bradycardia, unspecified (principal)
CPT/HCPCS: 93227; 93225; 93226

== ENCOUNTER 2021-08-20 09:47 | Outpatient (REF) | payer MEDICARE, SELFPAY ==
--- NOTE | 2021-08-20 08:30 | TONG_PTH ---
PATIENT: Cheng Lerma LOC: [facility] U#:[id number] AGE/SX: 81/M ROOM: RE08/20/[address]: Ryan Christie MD : 1940 BED: DIS: 08/20/2021 SPEC #: [id number] RECD: 08/21/21 12:09 STATUS: PETER REQ #: [id number] MARTIN: 08/20/21 08:[address]: Ryan Christie DEPT: Surgical Specimen RECD BY: Joanne Bucio ENTERED: 08/21/21 12:09 SP TYPE: JORGE KENT DR: Ervin Gillis DO Tissues: 1 - TONGUE BIOPSY Procedures: GROSS AND MICRO LEVEL 4 Comments: [id number]
== END 2021-08-20 09:48 | disposition home or self-care (01) ==
LOC: LBN 09:47
PROVIDERS: PCP Emergency Medicine; Visit Provider Otolaryngology
DX: K13.21 Leukoplakia of oral mucosa, including tongue (principal); K14.8 Other diseases of tongue
CPT/HCPCS: 88305

== ENCOUNTER 2022-04-08 01:58 | Outpatient (CLI) | payer MEDICARE, SELFPAY ==
[2022-04-08 10:05] LABS: ALT 44 U/L (16-63); AST 41 U/L (15-37); Albumin 3.8 g/dL (3.4-5.0); Alkaline Phosphatase 90 U/L (46-116); BUN 23 mg/dL (7-18); Bilirubin, Total 0.9 mg/dL (0.2-1.0); CREATININE 1.1 mg/dL (0.70-1.30); Calcium 8.7 mg/dL (8.5-10.1); Calculated LDL 72 mg/dL (<100); Chloride 99 mmol/L (98-107); Cholesterol 134 mg/dL (<200); Glucose 92 mg/dL (74-106); HDL Cholesterol 48 mg/dL (40-60); Potassium 3.9 mmol/L (3.5-5.1); Sodium 137 mmol/L (136-145); TSH (W/Ref FT4) 1.92 uIU/mL (0.36-3.74); Total Protein 6.9 g/dL (6.4-8.2); Triglyceride 70 mg/dL (<150)
== END 2022-04-08 01:59 | disposition home or self-care (01) ==
LOC: LBO 01:58
PROVIDERS: PCP Family Medicine; Visit Provider Family Medicine
DX: E03.9 Hypothyroidism, unspecified (principal); E78.5 Hyperlipidemia, unspecified; I10 Essential (primary) hypertension
CPT/HCPCS: 36415; 80053; 80061; 84443

== ENCOUNTER 2022-07-29 03:32 | Outpatient (CLI) | payer MEDICARE, SELFPAY ==
[2022-07-29 10:39] LABS: ALT 29 U/L (16-63); AST 37 U/L (15-37); Albumin 3.7 g/dL (3.4-5.0); Alkaline Phosphatase 83 U/L (46-116); Bilirubin, Direct 0.2 mg/dL (0.0-0.2); Bilirubin, Total 0.8 mg/dL (0.2-1.0); Total Protein 7.2 g/dL (6.4-8.2)
== END 2022-07-29 03:33 | disposition home or self-care (01) ==
LOC: LBO 03:33
PROVIDERS: PCP Family Medicine; Visit Provider Family Medicine
DX: B18.0 Chronic viral hepatitis B with delta-agent (principal)
CPT/HCPCS: 36415; 80076

== ENCOUNTER 2023-04-22 05:21 | Outpatient (CLI) | payer MEDICARE, SELFPAY ==
[2023-04-22 10:07] LABS: ALT 38 U/L (16-63); AST 40 U/L (15-37); Albumin 3.8 g/dL (3.4-5.0); Alkaline Phosphatase 95 U/L (46-116); Anion Gap 5.7 mmol/L (3-11); BUN 23 mg/dL (7-18); Bilirubin, Total 1.1 mg/dL (0.2-1.0); CO2 29.3 mmol/L (21.0-32.0); CREATININE 1.1 mg/dL (0.70-1.30); Chloride 104 mmol/L (98-107); Estimated GFR 66.19 (mL/min/1.73m2); Glucose 95 mg/dL (74-106); Potassium 4.4 mmol/L (3.5-5.1); Sodium 139 mmol/L (136-145); TSH (W/Ref FT4) 2.74 uIU/mL (0.36-3.74); Total Protein 6.9 g/dL (6.4-8.2)
== END 2023-04-22 05:22 | disposition home or self-care (01) ==
LOC: LBO 05:21
PROVIDERS: PCP Family Medicine; Visit Provider Family Medicine
DX: I10 Essential (primary) hypertension; Z00.00 Encounter for general adult medical examination without abnormal findings
CPT/HCPCS: 36415; 80053; 84443

== ENCOUNTER 2024-04-26 01:20 | Outpatient (CLI) | payer MEDICARE, SELFPAY ==
[2024-04-26 12:42] LABS: Abs Immature Grans 0.01 10^3/uL (0.0-0.06); Absolute Basophil Count 0.03 10^3/uL (0.0-0.2); Absolute Eosinophil Count 0.18 10^3/uL (0.0-0.7); Absolute Lymphocyte Count 1.16 10^3/uL (1.2-3.4); Absolute Monocyte Count 0.47 10^3/uL (0.1-0.8); Basophils % 0.5 %; HCT 40.9 % (40.0-50.0); HGB 14.4 g/dL (13.5-17.5); Immature Grans % 0.2 %; Lymphocytes % 19.2 %; MCH 33.7 pg (27.0-33.0); MCHC 35.2 % (32.0-36.0); MCV 96 fL (80-95); Monocytes % 7.8 %; Neutrophils % 69.3 %; Platelet Count 222 10^3/uL (130-400); RBC 4.27 10^6/uL (4.36-5.78); RDW 13.2 % (11.8-14.1); WBC 6.05 10^3/uL (4.4-10.8)
[2024-04-26 13:16] LABS: ALT 27 U/L (16-63); AST 32 U/L (15-37); Alkaline Phosphatase 86 U/L (46-116); Anion Gap 1.9 mmol/L (3-11); BUN 23 mg/dL (7-18); Bilirubin, Total 0.8 mg/dL (0.2-1.0); CO2 28.1 mmol/L (21.0-32.0); CREATININE 1.1 mg/dL (0.70-1.30); Calcium 8.9 mg/dL (8.5-10.1); Calculated LDL 100 mg/dL (<100); Chloride 107 mmol/L (98-107); Cholesterol 165 mg/dL (<200); Estimated GFR 65.79 (mL/min/1.73m2); Glucose 92 mg/dL (74-106); HDL Cholesterol 52 mg/dL (40-60); Sodium 137 mmol/L (136-145); TSH (W/Ref FT4) 2.75 uIU/mL (0.36-3.74); Triglyceride 66 mg/dL (<150)
[2024-04-26 14:00] LABS: Albumin 3.7 g/dL (3.4-5.0); Total Protein 6.8 g/dL (6.4-8.2)
[2024-04-26 15:06] LABS: Hemoglobin A1C 5.1 % (<5.7)
[2024-04-26 19:06] LABS: Hepatitis C Ab w Rflx HCV PCR Negative (Negative)
== END 2024-04-26 01:21 | disposition home or self-care (01) ==
LOC: LOS 01:20
PROVIDERS: PCP Family Medicine; Visit Provider Nurse Practitioner Family
DX: Z00.00 Encounter for general adult medical examination without abnormal findings (principal); Z11.59 Encounter for screening for other viral diseases
CPT/HCPCS: 36415; 80053; 80061; 86803; 83036; 84443; 85025

== ENCOUNTER 2025-05-16 03:30 | Outpatient (CLI) | payer MEDICARE, SELFPAY ==
[2025-05-16 13:06] LABS: ALT 28 U/L (16-63); AST 25 U/L (15-37); Albumin 3.4 g/dL (3.4-5.0); Alkaline Phosphatase 90 U/L (46-116); Anion Gap 4.2 mmol/L (3-11); BUN 25 mg/dL (7-18); Bilirubin, Total 0.8 mg/dL (0.2-1.0); CO2 30.8 mmol/L (21.0-32.0); CREATININE 1.2 mg/dL (0.70-1.30); Calcium 8.7 mg/dL (8.5-10.1); Chloride 105 mmol/L (98-107); Estimated GFR 58.89 (mL/min/1.73m2); Glucose 129 mg/dL (74-106); Potassium 4.2 mmol/L (3.5-5.1); Sodium 140 mmol/L (136-145); Total Protein 6.6 g/dL (6.4-8.2)
== END 2025-05-16 03:31 | disposition home or self-care (01) ==
LOC: LOS 03:31
PROVIDERS: PCP Family Medicine; Visit Provider Family Medicine
DX: I10 Essential (primary) hypertension (principal)
CPT/HCPCS: 36415; 80053

== ENCOUNTER 2025-06-27 13:28 | Emergency (ER) | payer MEDICARE, SELFPAY ==
[2025-06-27 13:29] VITALS: BP 173/70; PULSE 64; RESP 14; TEMP 36.6
--- NOTE | 2025-06-27 14:20 | ED.GENADUL_ITS ---
Discharge Plan Disposition Patient Disposition: Home Condition: Stable Discharge Details Clinical Impression: Arm skin lesion, right Primary Care Provider: Kalli Isidro ED Provider: Zuleika Mccray Home Meds and New Rx's Prescriptions: No Action PreserVision AREDS [id number] mahq-qw-gqux capsule 1 cap PO BID Vabysmo 6 mg/0.05 mL solution 0.05 ml intravitreal PRN wzvafcmkroex-kscsfvix-khfhie Tablet 1 tab PO DAILY tamsulosin [Flomax] 0.4 MG capsule 0.4 mg PO DAILY Patient Comments: 01/01/[address] Rowan. 04/16/16 takes prn. genevieve 08/26/16 taking daily. genevieve levothyroxine [Synthroid] 50 mcg tablet 50 mcg PO DAILY Qty: 90 3RF Discharge Instructions Instructions: Itchy Skin Additional Instructions: You were seen in the emergency department today for evaluation of a skin lesion that has been present for approximately 9 weeks. In our department a full physical examination performed, this lesion does not appear infected, but I am concerned given how long it is taken to heal. I recommend that you call your product design specialist to schedule an appointment for a skin biopsy. Sometimes nonhealing wounds can be signs of skin cancer. You can use topical emollients such as Aquaphor to reduce itching. Please follow-up with your primary care provider in the next few days to discuss this visit and any symptoms that change, worsen, or persist. Thank you for allowing us to be part of your care. HPI General Mode of arrival: ambulatory . Date/Time Provider Initiated Documentation: 06/27/25 13:41 . Limitations to Documentation: no limitations . Information obtained by: patient and old records reviewed . HPI Narrative: This is a an 85-year-old male patient with a history of bladder cancer, hyperlipidemia, psoriasis, GERD, and hypertension, presenting for evaluation of a skin lesion. The patient states that about 9 weeks ago he woke up with a red dot on his arm. He initially thought it was an insect bite, states that the swelling underneath has resolved, but the skin lesion has not gone away entirely. He states that it is itchy but not incredibly bothersome. It does not hurt or bleed, has not spread, and he has not noted any other lesions on his body. He states that there was no change in his lesion today, but given the duration wanted to be evaluated to ensure that it was not something worrisome. Related Data Home Medications ?Medication ?Instructions ?Recorded ?Confirmed tamsulosin 0.4 mg capsule (Flomax) 0.4 mg PO DAILY 01/1506/27/25 vitamins A,C,M-kiuv-hrvpft 4,296 1 cap PO BID 07/23/21 06/27/25 mcg-226 mg-90 mg capsule (PreserVision AREDS) qqyhzcgseewh-gbaeotij-tjnjzw tablet 1 tab PO DAILY 06/2006/27/25 levothyroxine 50 mcg tablet 50 mcg PO DAILY #90 tab-ca ps 08/09/24 06/27/25 (Synthroid) faricimab-svoa 6 mg/0.05 mL 0.05 ml intravitreal PRN 0 05/12/25 06/27/25 intravitreal solution (Vabysmo) Previous Rx's ?Medication ?Instructions ?Recorded levothyroxine 50 mcg tablet 50 mcg PO DAILY #90 tab-ca ps 08/09/24 (Synthroid) Allergies Allergy/AdvReac Type Severity Reaction Status Date / Time amlodipine AdvReac Intermediate periphreal Verified 06/27/25 13:36 edema General Stated Complaint: InsectBite PRAVEENA: 4 Exam Narrative Exam Narrative: Gen: Awake and alert, in no apparent distress HEENT: Non-icteric sclera Neck: Supple Lungs: No apparent respiratory distress, normal respiratory effort. CV: Appears well perfused Abdomen: Non-distended MSK: Moves 4 extremities without apparent limitation in ROM Skin: The left upper extremity over the lateral upper arm has a 1 cm area of red flaky skin. I do not palpate any fluctuance underlying, no surrounding induration, redness, or swelling. Neuro: Normal Gait, no obvious focal deficits or facial asymmetry. Speaks in full, clear sentences. Psych: Appropriate for situation. Course Vital Signs Vital signs: Vital Signs Temperature 36.6 C 06/27/25 13: Pulse 64 06/27/25 13:29 Respiratory Rate 14 06/27/25 13:29 Blood Pressure 173/70 H 06/27/25 13:29 Temperature 36.6 C 06/27/25 13:29 Pulse 64 06/27/25 13:29 Respiratory Rate 14 06/27/25 13:29 Blood Pressure 173/70 H 06/27/25 13:29 Blood Pressure Position Sitting 06/27/25 13:29 Oxygen Delivery Method Room Air 06/27/25 13:29 Oxygen Flow Rate 0 06/27/25 13:29 Medical Decision Making This is an 85-year-old male patient presenting for evaluation of a skin lesion for the last 9 weeks. My differential includes but is not limited to skin malignancies including squamous cell carcinoma, actinic keratosis, atypical appearance of melanoma. Considered chronic skin issues including psoriasis, atopic dermatitis. Duration of symptoms less consistent with contact dermatitis. No evidence for abscess or cellulitis on my physical examination. Certainly considered fungal skin infection, though the patient has no associated lesions and this would be a lower risk location. Given the duration of symptoms and the patient's age, I do feel that the possibility of skin cancer must be considered. I see that the patient has a history of dermatology follow-up for his psoriasis, and he states he will be able to contact his product design specialist this afternoon to schedule an appointment for biopsy. The patient's symptoms are not so bothersome that he requires any medications for treatment of his itching, but I did recommend topical emollients such as Aquaphor. I do not see an indication at this time for advanced imaging or laboratory studies. Please follow-up with your primary care provider in the next few days to discuss this visit and any symptoms that change, worsen, or persist. Thank you for allowing us to be part of your care. PFSH All Active Problems (Updated 06/27/25 @ 14:22 by Zuleika Mccray MD) Arm skin lesion, right (Acute) BPH w urinary obs/LUTS (Acute) History of bladder cancer (Chronic ~2014) Macular degeneration of right eye (Acute) Hyperlipidemia (Acute) Bradycardia (Chronic) during sleep - watch alerted him. Holter with sinus bradycardia in 06/2021. 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 Manages with a nap. 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 Son No problems noted. Daughter No problems noted. Mother No problems noted. Social History (Updated 05/19/25 @ 11:40 by Lisbet Lua) Smoking/Tobacco Use Status: Former Tobacco Use tobacco type: cigarettes Quit Date: 11/30/74 Tobacco: How many years used: 20 Second Hand Exposure: Yes Smoking risk assessment performed?: Yes Alcohol Intake: former Drug use: Never Substance use type: does not use Adopted: No Caregiver/Support person: No Household members: spouse Housing: house Number of Children: 3 number of grandchildren: 2 Communication Needs: Corrective Lenses Education Level: high school Do you need help understanding health information?: Rarely current occupation: retired Pets and animals: No Sexually active: Yes Do you think of yourself as: straight/heterosexual Current gender identity: male What is your relationship status?: How often do you talk on the phone with friends or family?: three or more times per week How often do you get together with friends or relatives?: never How often do you attend jehovah's witness or christian services?: 4 or more times per year Do you belong to any clubs or organized social groups?: no Panel score (0-1 are the most socially isolated patients): 3 What type of physical activity do you participate in: walking Duration: 15-30 minutes/day Frequency: 3-4 times per week Brigid/Sikh: Amish Seatbelt use: always Helmet use: No Drive intox or ride w/intox cdl bulk driver: No Working smoke detector in home: Yes Carbon monox detector in home: Yes Do you feel safe at home: Yes Do you feel safe in your relationship?: Yes Victim of physical abuse: No Victim of emotional abuse: No Victim of sexual abuse: No Would you like helpful sources: No
== END 2025-06-27 14:32 | disposition home or self-care (01) ==
PROVIDERS: Emergency Provider Emergency Medicine; PCP Family Medicine
DX: S40.861A Insect bite (nonvenomous) of right upper arm, initial encounter (principal); W57.XXXA Bitten or stung by nonvenomous insect and other nonvenomous arthropods, initial encounter; L40.9 Psoriasis, unspecified
CPT/HCPCS: 99283 ×2